=== PATIENT | male | born 2000 | race Caucasian/White ===

== ENCOUNTER 2022-10-12 15:04 | Emergency (ER) | payer MEDICAID ==
[~2022-10-12] VITALS: Ht 175.3 cm; Wt 80.0 kg
[2022-10-12 15:15] VITALS: BP 146/91
== END 2022-10-12 17:10 | disposition home or self-care (01) ==
LOC: EMS 15:19
DX: K40.90 Unilateral inguinal hernia, without obstruction or gangrene, not specified as recurrent (principal); K37 Unspecified appendicitis; F12.90 Cannabis use, unspecified, uncomplicated; Z90.49 Acquired absence of other specified parts of digestive tract
CPT/HCPCS: 99281; Z7502